=== PATIENT | male | born 1985 | race Caucasian/White ===

== ENCOUNTER 2018-05-29 08:09 | Emergency (ER) | payer SELFPAY ==
[2018-05-29 08:16] VITALS: BP 130/70; PULSE 85; TEMP 98.5; BMI 28.7
--- NOTE | 2018-05-29 08:55 | PDOC ---
History of Present Illness - General Chief Complaint: Rash Stated Complaint: RASH Time Seen by Provider: 05/29/18 08:24 History Source: Patient - History of Present Illness Timing/Duration: reports: other Location: reports: hands Past History - Past Medical History Allergies/Adverse Reactions: Allergies Allergy/AdvReac Type Severity Reaction Status Date / Time No Known Allergies Allergy Verified 05/29/18 08:16 Home Medications: Ambulatory Orders NK [No Known Home Medication] 10/29/14 COPD: No - Suicide/Smoking/Psychosocial Hx Smoking History: Never smoked Number of Cigarettes Smoked Daily: 1 Information on smoking cessation initiated: No Hx Alcohol Use: No Substance Use Type: None, Marijuana Review of Systems - Review of Systems Constitutional: No: Chills, Fever Integumentary: Yes: Pruritus, Rash. No: Erythema *Physical Exam - Vital Signs Last Vital Signs Temp Pulse Resp BP Pulse Ox 98.5 F 85 18 130/70 99 05/29/18 08:13 05/29/18 08:13 05/29/18 08:13 05/29/18 08:13 05/29/18 08:13 - Physical Exam General Appearance: Yes: Appropriately Dressed. No: Apparent Distress HEENT: positive: Normal Voice Neck: positive: Supple Respiratory/Chest: negative: Respiratory Distress Integumentary: positive: Dry, Warm, Other (scaling and dry skin to lobato and dorsal aspect of hand, no erythema or blisters) Neurologic: positive: Fully Oriented, Alert, Normal Mood/Affect Medical Decision Making - Medical Decision Making 05/29/18 09:06 33 yo M, no sig hx, here w/ rash to hands x ~3 months. 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 States he first noticed some "bumps" to palms 3 months ago that went away with [id number] emollients but then reoccurred 2-3 weeks ago and is worse. States rash was pruritic initially, but not currently. Denies any pain , redness or discharge. No fever or chills See exam Irritant contact dermatitis to hands b/l M/l 2/2 direct contact w/ oil/water at work per hx No need for high potency topical steroids given mild nature of dermatitis -Dc w/ protective precaution such as avoidance, active tx w/ emollients and protective measures such as glove use -derm f/u given *DC/Admit/Observation/Transfer Diagnosis at time of Disposition: Contact dermatitis Qualifiers: Contact dermatitis type: irritant Contact dermatitis trigger: unspecified trigger Qualified Code(s): L24.9 - Irritant contact dermatitis, unspecified cause - Discharge Dispostion Disposition: HOME Condition at time of disposition: Good - Referrals Referrals: Nedra Bustos MD [Staff Physician] - - Patient Instructions Printed Discharge Instructions: Contact Dermatitis Additional Instructions: Your rash is most likely caused by an offending agent irritating your your skin at work. The most important treatment of this is to prevent further irritation and restore protection barrier function of skin. Please apply liberally petroleum ointment to your hands multiple times a day including after washing hands and after you leave work. Use tight fitting gloves for a short duration as possible and use thin cotton gloves under tight gloves and change cotton gloves as soon as it become damp damp. To prevent contact dermatitis of your hands in the future, please apply barrier creams or emollients such as petroleum, lanolin, mineral oil, etc. multiple times per day. The above measures can improve symptoms over the next 4 weeks. We also would like for you to see a merchandising representative in the next week or [address]. [address] Bustos for an appointment - Post Discharge Activity
== END 2018-05-29 09:09 | disposition home or self-care (01) ==
LOC: JERFT 08:09
DX: L24.9 Irritant contact dermatitis, unspecified cause (principal)
CPT/HCPCS: 99281-25

== ENCOUNTER 2018-11-08 09:57 | Emergency (ER) | payer SELFPAY ==
[2018-11-08 10:40] VITALS: BP 125/94; PULSE 64; TEMP 98.4; BMI 23.5
--- NOTE | 2018-11-08 11:10 | PDOC ---
History of Present Illness - General Chief Complaint: Itching Stated Complaint: FOOT PROBLEM Time Seen by Provider: 11/08/18 10:59 - History of Present Illness Initial Comments: 11/08/18 11:08 33-year-old male without comorbidities presents of bilateral feet itching. Patient states she had this issue his whole life recently exacerbated without any precipitating changes in the last week or 2. No systemic symptoms. Past History - Past Medical History Allergies/Adverse Reactions: Allergies Allergy/AdvReac Type Severity Reaction Status Date / Time No Known Allergies Allergy Verified 11/08/18 10:36 Home Medications: Ambulatory Orders Oxiconazole Nitrate [Oxistat] 90 gm TP BID #1 cream..g. 11/08/18 COPD: No - Immunization History Immunization Up to Date: Yes - Suicide/Smoking/Psychosocial Hx Smoking History: Former smoker Have you smoked in the past 12 months: No Number of Cigarettes Smoked Daily: 1 Information on smoking cessation initiated: No Hx Alcohol Use: No Drug/Substance Use Hx: No Substance Use Type: None, Marijuana Review of Systems - Review of Systems Integumentary: Yes: See HPI, Pruritus *Physical Exam - Vital Signs Last Vital Signs Temp Pulse Resp BP Pulse Ox 98.4 F 64 18 125/94 100 11/08/18 10:37 11/08/18 10:37 11/08/18 10:37 11/08/18 10:37 11/08/18 10:37 - Physical Exam Comments: 11/08/18 11:08 There are bilateral interdigital scaling with superficial escalations in between the toes slightly raised no induration or warmth. No focal fluctuance. Moderate Sedation - Procedure Monitoring Vital Signs: Procedure Monitoring Vital Signs Temperature 98.4 F 11/08/18 10:37 Pulse Rate 64 11/08/18 10:37 Respiratory Rate 18 11/08/18 10:37 Blood Pressure 125/94 11/08/18 10:37 O2 Sat by Pulse Oximetry (%) 100 11/08/18 10:37 *DC/Admit/Observation/Transfer Diagnosis at time of Disposition: Tinea pedis of both feet - Discharge Dispostion Disposition: HOME Condition at time of disposition: Stable Decision to Admit order: No - Referrals Referrals: Nedra Bustos MD [Staff Physician] - Jose Luis Frank MD [Non Staff, Medical] - Stacie Pelaez MD [Non Staff, Medical] - Ke Cline [Non Staff, Medical] - Dimitri Gary MD [Non Staff, Medical] - Renae Etienne MD [Non Staff, Medical] - Janice Amaya MD [Non Staff, Medical] - Demond Jefferson MD [Non Staff, Medical] - Avery Walters MD [Non Staff, Medical] - Chalo Middleton MD [Non Staff, Medical] - Stacie Cai MD [Non Staff, Medical] - Ness Archuleta MD [Non Staff, Medical] - Salvador Schaefer MD [Non Staff, Medical] - Carlos Jiang MD [Non Staff, Medical] - Jordi Barcenas [Staff Physician] - Kaushik Peng MD [Non Staff, Medical] - Noe Owens MD [Non Staff, Medical] - Fran Salvador MD [Non Staff, Medical] - - Patient Instructions Printed Discharge Instructions: Athlete's Foot, DI for Athlete's Foot Additional Instructions: Please use the topical antifungal as directed twice a day. I've given U3 refills. Please follow-up with dermatology in 2-3 days for further evaluation and treatment options. Return to the emergency room should symptoms worsen or go unresolved. - Post Discharge Activity
== END 2018-11-08 11:11 | disposition home or self-care (01) ==
LOC: JERFT 09:57
DX: B35.3 Tinea pedis (principal)
CPT/HCPCS: 99281-25

== ENCOUNTER 2022-10-26 22:27 | Emergency (ER) | payer SELFPAY ==
[2022-10-26 22:45] VITALS: BP 113/71; PULSE 71; RESP 20; TEMP 98.5; BMI 30.1
[2022-10-27 00:28] LABS: BASO % 0.6 % (0-2.0); EOS % 1.2 % (0-4.5); HEMATOCRIT 43.6 % (35.4-49); LYMPH % 26.6 % (8-40); MCH 25.9 pg (25.7-33.7); MCHC 32.2 g/dl (32.0-35.9); MEAN CELL VOLUME 80.4 fl (80-96); MEAN PLT VOLUME 8.9 fl (7.5-11.1); NEUT % 63.6 % (42.8-82.8); PLATELET COUNT 239 10^3/uL (134-434); RBC 5.43 M/mm3 (4.00-5.60); RDW 14.6 % (11.9-15.9); WHITE BLOOD COUNT 9.6 K/mm3 (4.0-10.0)
[2022-10-27 00:51] LABS: ALBUMIN 3.6 g/dl (3.4-5.0)
[2022-10-27 00:54] LABS: CREATININE 0.7 mg/dL (0.55-1.3)
[2022-10-27 00:56] LABS: BILIRUBIN,TOTAL 0.2 mg/dL (0.2-1); TOT PROT 7.4 g/dl (6.4-8.2)
== END 2022-10-27 01:45 | disposition home or self-care (01) ==
LOC: JER 22:27
DX: R07.9 Chest pain, unspecified (principal)
CPT/HCPCS: 0241U-QW; 36415; 71045-TC-FY; 80053; 84484; 85025; 93005; 93010; 99285-25

== ENCOUNTER 2023-07-30 20:05 | Emergency (ER) | payer SELFPAY ==
[2023-07-30 20:17] VITALS: BP 106/67; PULSE 67; RESP 18; TEMP 98.2; BMI 28.0
[2023-07-30] MEDS ORDERED: NAPROXEN 500 MG TABLET PO ONE (21:30)
[2023-07-30] MEDS ORDERED: NAPROXEN 500 MG TABLET ONE (21:32)
== END 2023-07-30 22:23 | disposition home or self-care (01) ==
LOC: JER 20:05
DX: M79.642 Pain in left hand (principal); M79.645 Pain in left finger(s); M79.89 Other specified soft tissue disorders
CPT/HCPCS: 73130-TC-LT-FY; 99283-25

== ENCOUNTER 2024-05-05 16:52 | Emergency (ER) | payer SELFPAY ==
[2024-05-05 17:07] VITALS: BP 128/81; PULSE 73; RESP 18; TEMP 98.2; BMI 26.6
== END 2024-05-05 18:27 | disposition home or self-care (01) ==
LOC: JER 16:52 → JERFT 16:52
DX: B35.3 Tinea pedis (principal); M79.671 Pain in right foot; M79.674 Pain in right toe(s)
CPT/HCPCS: 99283-25